=== PATIENT | female | born 1980 | race American Indian/Alaskan Native ===

== ENCOUNTER 2016-11-18 14:26 | Emergency (ER) | payer MEDICAID ==
[2016-11-18 14:27] VITALS: BMI 29.7
--- NOTE | 2016-11-18 15:42 | ED PDOC ---
Arrival/HPI - General Time Seen by Provider: 11/18/16 15:28 Historian: Patient - History of Present Illness Narrative History of Present Illness (Text): 11/18/16 15:40 This 36 yo female with pmh UTI, presents to this ED c/o urinary frequency, urgency x 2 weeks. Denies dysuria, vaginal discharge, sob, fever, rash, back pain, STD exposure, or vaginal bleeding. Time/Duration: Other (2 weeks) Context: Home Past Medical History - Provider Review Nursing Documentation Reviewed: Yes - Endocrine/Metabolic Hx Diabetes Mellitus Type 2: (borderline diabetes) - Musculoskeletal/Rheumatological Other/Comment: bone problems - Psychiatric Hx Substance Use: No - Suicidal Assessment Feels Threatened In Home Enviroment: No Family/Social History - Physician Review Nursing Documentation Reviewed: Yes Family/Social History: No Known Family HX Smoking Status: Never Smoked Hx Alcohol Use: No Hx Substance Use: No Hx Substance Use Treatment: No Allergies/Home Meds Allergies/Adverse Reactions: Allergies clindamycin Allergy (Verified 11/18/16 15:37) VOMITING dental antibiotic Adverse Reaction (Uncoded 05/15/15 13:25) PAIN constipation Review of Systems - Review of Systems Constitutional: Normal. absent: Fatigue, Weight Change, Fevers, Night Sweats Eyes: Normal ENT: Normal Respiratory: Normal. absent: SOB, Cough, Sputum, Wheezing Cardiovascular: Normal. absent: Chest Pain, Palpitations Gastrointestinal: Normal. absent: Abdominal Pain, Nausea, Vomiting Genitourinary Female: Frequency, Other ((+) urgency). absent: Dysuria, Hematuria, Urine Output Changes, Vaginal Bleeding, Vaginal Discharge Musculoskeletal: Normal Skin: Normal Neurological: Normal Endocrine: Normal Hemo/Lymphatic: Normal Psychiatric: Normal Physical Exam Vital Signs Temp Pulse Resp BP Pulse Ox 11/18/16 17:00 67 18 124/79 99 11/18/16 15:43 98.5 F 66 16 126/85 99 Temperature: Afebrile Blood Pressure: Normal Pulse: Regular Respiratory Rate: Normal Appearance: Positive for: Well-Appearing, Non-Toxic, Comfortable Pain Distress: None Mental Status: Positive for: Alert and Oriented X 3 - Systems Exam Head: Present: Atraumatic, Normocephalic Pupils: Present: PERRL Extroacular Muscles: Present: EOMI Conjunctiva: Present: Normal Mouth: Present: Moist Mucous Membranes Neck: Present: Normal Range of Motion Respiratory/Chest: Present: Clear to Auscultation, Good Air Exchange. No: Respiratory Distress, Accessory Muscle Use Cardiovascular: Present: Regular Rate and Rhythm, Normal S1, S2. No: Murmurs Abdomen: Present: Normal Bowel Sounds. No: Tenderness, Distention, Peritoneal Signs Genitourinary/Pelvic Exam: Present: Other (deferred) Back: Present: Normal Inspection Upper Extremity: Present: Normal Inspection. No: Cyanosis, Edema Lower Extremity: Present: Normal Inspection. No: Edema Neurological: Present: GCS=15, CN II-XII Intact, Speech Normal Skin: Present: Warm, Dry, Normal Color. No: Rashes Psychiatric: Present: Alert, Oriented x 3, Normal Insight, Normal Concentration Medical Decision Making ED Course and Treatment: 11/18/16 16:59 Re-evaluation. Patient feels better. Discussed results and plan with patient who expresses understanding. All questions answered and there is agreement with the plan to discharge home with instructions. Patient stable for discharge. Return if symptoms persist or worsen. Re-evaluation Time: 16:59 Reassessment Condition: Re-examined, Improved - Lab Interpretations Microbiology Results: Microbiology Results 11/18/16 16:30 Urine Urine Culture - Final No Growth (<1,000 CFU/ML) Lab Results: Lab Results 11/18/16 16:30: Urine Color Yellow, Urine Appearance Clear, Urine pH 5.5, Ur Specific [place] 1.020, Urine Protein Negative, Urine Glucose (UA) Negative, Urine Ketones Negative, Urine Blood Trace-intact H, Urine Nitrate Negative, Urine Bilirubin Negative, Urine Urobilinogen 0.2, Ur Leukocyte Esterase Trace H , Urine RBC 5 - 10, Urine WBC 2 - 5, Ur Epithelial Cells 6 - 8, Urine HCG, Qual Negative I have reviewed the lab results: Yes Interpretation: Abnormal lab values (possible UTI) - Medication Orders Current Medication Orders: Discontinued Medications Cephalexin Monohydrate (Keflex) 500 mg PO STAT STA PRN Reason: Protocol Stop: 11/18/16 16:59 Last Admin: 11/18/16 17:06 Dose: 500 mg Phenazopyridine HCl (Pyridium) 200 mg PO STAT STA Stop: 11/18/16 16:59 Last Admin: 11/18/16 17:07 Dose: 200 mg Disposition/Present on Arrival - Present on Arrival Any Indicators Present on Arrival: No History of DVT/PE: No History of Uncontrolled Diabetes: No Urinary Catheter: No History Surgical Site Infection Following: None - Disposition Have Diagnosis and Disposition been Completed?: Yes Diagnosis: Acute cystitis Disposition: HOME/ ROUTINE Disposition Time: 16:59 Patient Plan: Discharge Condition: GOOD Discharge Instructions (ExitCare): Urinary Tract Infection in Women (ED) Additional Instructions: Call private doctor for follow up visit in 1-2 days. Take medication as instructed. Return to emergency if symptoms worsen Prescriptions: Cephalexin [cephalexin] 500 mg PO BID #14 cap Phenazopyridine [Phenazopyridine HCl] 200 mg PO TID #6 tab Referrals: [facility] [Outside] - [facility] [[facility]] - Follow up with primary Forms: WORK NOTE
[2016-11-18 15:44] VITALS: TEMP 98.5; O2SAT 99
[2016-11-18 16:45] LABS: PH,URINE 5.5 (4.7-8.0); URINE APPEARANCE CLEAR (CLEAR); URINE BILIRUBIN NEGATIVE (NEGATIVE); URINE BLOOD TRACE-INTACT (NEGATIVE); URINE COLOR YELLOW (YELLOW); URINE GLUCOSE (UA) NEGATIVE (NEGATIVE); URINE KETONE NEGATIVE (NEGATIVE); URINE LEUKOCYTE ESTERASE TRACE Leu/uL (NEGATIVE); URINE PROTEIN NEGATIVE mg/dL (<30 mg/dL); URINE UROBILINOGEN 0.2 E.U./dL (<1 E.U./dL)
[2016-11-18 17:10] VITALS: BP 124/79; PULSE 67; RESP 18
== END 2016-11-18 17:30 | disposition home or self-care (01) ==
LOC: ED 14:26
DX: N30.00 Acute cystitis without hematuria (principal)

== ENCOUNTER 2016-11-26 20:43 | Emergency (ER) | payer MEDICAID ==
[2016-11-26 20:51] VITALS: BMI 33.9
[2016-11-26 20:53] VITALS: BP 124/86; PULSE 86; TEMP 98.2
--- NOTE | 2016-11-26 21:58 | ED PDOC ---
Arrival/HPI - General Chief Complaint: ENT Problem Time Seen by Provider: 11/26/16 21:16 Historian: Patient - History of Present Illness Narrative History of Present Illness (Text): 11/26/16 21:57 36-year-old female presents today with a one-week history of sore throat and nasal congestion. Denies cough. Patient with a history of seasonal allergies. Patient complaining of postnasal drip. She denies fevers at home. Denies sick contacts. No vomiting or diarrhea. No chest pain or shortness of breath. Patient complaining of irritation and pruritus in the throat. Time/Duration: 1 week Symptom Onset: Gradual Symptom Course: Unchanged Quality: Other (scratchy/irritated) Severity Level: 2 Past Medical History - Provider Review Nursing Documentation Reviewed: Yes - Travel History Have you recently traveled outside [place] w/in the past 3 mons?: No - Tetanus Immunization Tetanus Immunization: Unknown - Cardiac Hx Hypertension: Yes (BORDERLINE) - Pulmonary Hx Respiratory Disorders: No - Neurological Hx Neurological Disorder: No - HEENT Hx HEENT Disorder: No - Renal Hx Renal Disorder: No - Endocrine/Metabolic Hx Diabetes Mellitus Type 2: (borderline diabetes) - Hematological/Oncological Hx Blood Disorders: No - Integumentary Hx Dermatological Disorder: No - Musculoskeletal/Rheumatological Other/Comment: bone problems - Gastrointestinal Hx Gastrointestinal Disorders: No - Genitourinary/Gynecological Hx Urinary Tract Infection: Yes - Psychiatric Hx Psychophysiologic Disorder: No Hx Substance Use: No - Suicidal Assessment Feels Threatened In Home Enviroment: No Family/Social History - Physician Review Nursing Documentation Reviewed: Yes Family/Social History: Unknown Family HX Smoking Status: Never Smoked Hx Alcohol Use: No Hx Substance Use: No Hx Substance Use Treatment: No Allergies/Home Meds Allergies/Adverse Reactions: Allergies clindamycin Allergy (Verified 11/26/16 20:51) VOMITING dental antibiotic Adverse Reaction (Uncoded 11/26/16 20:51) PAIN constipation Review of Systems - Review of Systems Constitutional: absent: Fatigue, Fevers ENT: Sore Throat, Sinus Congestion Respiratory: absent: SOB, Cough Cardiovascular: absent: Chest Pain, Palpitations Gastrointestinal: absent: Abdominal Pain, Diarrhea, Vomiting Musculoskeletal: absent: Arthralgias Skin: absent: Rash Neurological: absent: Headache Physical Exam Vital Signs Reviewed: Yes Vital Signs Temp Pulse Resp BP Pulse Ox 11/26/16 20:52 98.2 F 86 17 124/86 100 Temperature: Afebrile Blood Pressure: Normal Pulse: Regular Respiratory Rate: Normal Appearance: Positive for: Well-Appearing, Non-Toxic, Comfortable Pain Distress: None Mental Status: Positive for: Alert and Oriented X 3 - Systems Exam Head: Present: Atraumatic Extroacular Muscles: Present: EOMI Conjunctiva: Present: Normal Ears: Present: Normal, NORMAL TM Mouth: Present: Moist Mucous Membranes, Normal Tounge, Normal Teeth. No: Drooling, Trismus Pharnyx: Present: ERYTHEMA. No: Normal, EXUDATE, TONSILS ENLARGED, Peritonsilar Swelling, Uvular Deviation, Muffled/Hoarse Voice Nose (External): Present: Atraumatic Nose (Internal): Present: Normal Inspection Neck: Present: Normal Range of Motion, Trachea Midline. No: Lymphadenopathy Respiratory/Chest: Present: Clear to Auscultation, Good Air Exchange. No: Respiratory Distress, Accessory Muscle Use Cardiovascular: Present: Regular Rate and Rhythm, Normal S1, S2. No: Murmurs Neurological: Present: GCS=15 Skin: Present: Warm, Dry, Normal Color. No: Rashes Psychiatric: Present: Alert, Oriented x 3 Medical Decision Making ED Course and Treatment: 11/26/16 21:59 Patient is nontoxic well appearing in no distress. Vital signs are stable Tolerating p.o. fluids and solids pt states she is allergic to clindamcyin; pt states she was given clindamycin by the dentist and developed reaction; pt states she is NOT allergic to PCN. I advised follow up with primary care physician and ENT within the next 2 days, advised to increase fluids take medications as prescribed and return if symptoms worsen persist or if new symptoms develop Patient verbalizes understanding of discharge instructions and need for immediate followup. all aspects of this case were discussed the attending of record. IMPRESSION; pharyngitis, nasal congestion Claritin daily flonase; 2 sprays each nostril once daily. Increase fluids Amoxicillin;3 times daily x10 days Follow up primary care physician within the next 2 days Follow up with the ENT specialist [place] gargles, throat lozenges Return if symptoms worsen persist or if the symptoms develop Disposition/Present on Arrival - Present on Arrival Any Indicators Present on Arrival: No History of DVT/PE: No History of Uncontrolled Diabetes: No Urinary Catheter: No History of Decub. Ulcer: No History Surgical Site Infection Following: None - Disposition Have Diagnosis and Disposition been Completed?: Yes Diagnosis: Pharyngitis, Nasal congestion Disposition: HOME/ ROUTINE Disposition Time: 21:55 Patient Plan: Discharge Condition: GOOD Discharge Instructions (ExitCare): Pharyngitis (ED) Additional Instructions: Flonase 2 sprays each nostril once daily Claritin one tablet daily Increase fluids Amoxicillin 3 times daily x10 days Follow up primary care physician within the next 2 days [place] gargles, throat lozenges Return if symptoms worsen persist or if the symptoms develop Prescriptions: Amoxicillin 500 mg PO TID #30 tab Fluticasone Nasal [Flonase] 2 spr NS DAILY #1 spr Loratadine [Claritin] 10 mg PO DAILY #30 tab Referrals: José Miguel Lynn DO [Staff Provider] - Follow up with primary [facility] [Outside] - Follow up with primary Laura Anderson MD [Staff Provider] - Follow up with primary Forms: WORK NOTE
[2016-11-26 22:26] VITALS: RESP 16; O2SAT 98
== END 2016-11-26 22:26 | disposition home or self-care (01) ==
LOC: ED 20:43
DX: J02.9 Acute pharyngitis, unspecified (principal); R09.81 Nasal congestion

== ENCOUNTER 2017-01-17 12:26 | Emergency (ER) | payer MEDICAID, OTHER ==
[2017-01-17 12:29] VITALS: BMI 32.3
[2017-01-17 12:32] VITALS: BP 114/77; PULSE 80; RESP 18; TEMP 98.1; O2SAT 99
--- NOTE | 2017-01-17 12:37 | ED PDOC ---
Arrival/HPI - General Chief Complaint: Dental Pain Time Seen by Provider: 01/17/17 12:29 Historian: Patient - History of Present Illness Narrative History of Present Illness (Text): 01/17/17 12:32 36yo female present with complaint of right lower tooth pain with swelling since yesterday. States pain started while chewing yesterday. Took Aleve and Tylenol for the pain without relieve. She also report urinary frequency. states she was treated for UTI a month ago, but still having urinary frequency. She denies fever, chills, dysuria, back pain, any other complaint. Past Medical History - Provider Review Nursing Documentation Reviewed: Yes - Infectious Disease Hx of Infectious Diseases: None - Tetanus Immunization Tetanus Immunization: Unknown - Cardiac Hx Cardiac Disorders: Yes Hx Hypertension: Yes (BORDERLINE) - Pulmonary Hx Respiratory Disorders: No - Neurological Hx Neurological Disorder: No - HEENT Hx HEENT Disorder: No - Renal Hx Renal Disorder: No - Endocrine/Metabolic Hx Endocrine Disorders: Yes Hx Diabetes Mellitus Type 2: (borderline diabetes) - Hematological/Oncological Hx Blood Disorders: No - Integumentary Hx Dermatological Disorder: No - Musculoskeletal/Rheumatological Other/Comment: bone problems - Gastrointestinal Hx Gastrointestinal Disorders: No - Genitourinary/Gynecological Hx Genitourinary Disorders: Yes Hx Urinary Tract Infection: Yes - Psychiatric Hx Psychophysiologic Disorder: No Hx Substance Use: No - Anesthesia Hx Anesthesia: No - Suicidal Assessment Feels Threatened In Home Enviroment: No Family/Social History - Physician Review Nursing Documentation Reviewed: Yes Family/Social History: Unknown Family HX Smoking Status: Never Smoked Hx Alcohol Use: No Hx Substance Use: No Hx Substance Use Treatment: No Allergies/Home Meds Allergies/Adverse Reactions: Allergies clindamycin Allergy (Verified 01/17/17 12:29) VOMITING dental antibiotic Adverse Reaction (Uncoded 01/17/17 12:29) PAIN constipation Review of Systems - Physician Review All systems were reviewed & negative as marked: Yes - Review of Systems Constitutional: Normal Eyes: Normal ENT: Other (Toothache) Respiratory: Normal Cardiovascular: Normal Gastrointestinal: Normal Genitourinary Female: Frequency. absent: Dysuria, Hematuria Musculoskeletal: Normal Skin: Normal Neurological: Normal Endocrine: Normal Hemo/Lymphatic: Normal Psychiatric: Normal Physical Exam Vital Signs Reviewed: Yes Vital Signs Temp Pulse Resp BP Pulse Ox 01/17/17 12:31 98.1 F 80 18 114/77 99 Temperature: Afebrile Blood Pressure: Normal Pulse: Regular Respiratory Rate: Normal Appearance: Positive for: Well-Appearing, Non-Toxic, Comfortable Pain Distress: None Mental Status: Positive for: Alert and Oriented X 3 - Systems Exam Head: Present: Atraumatic, Normocephalic Pupils: Present: PERRL Extroacular Muscles: Present: EOMI Conjunctiva: Present: Normal Mouth: Present: Moist Mucous Membranes. No: Normal Teeth (Lateral right incisor noted with mild gingival swelling) Neck: Present: Normal Range of Motion Respiratory/Chest: Present: Clear to Auscultation, Good Air Exchange. No: Respiratory Distress, Accessory Muscle Use Cardiovascular: Present: Regular Rate and Rhythm, Normal S1, S2. No: Murmurs Abdomen: Present: Normal Bowel Sounds. No: Tenderness, Distention, Peritoneal Signs, Rebound, Guarding, McBurney's Point Tender, Rovsing's Sign Present Back: Present: Normal Inspection Upper Extremity: Present: Normal Inspection. No: Cyanosis, Edema Lower Extremity: Present: Normal Inspection. No: Edema Neurological: Present: GCS=15, CN II-XII Intact, Speech Normal Skin: Present: Warm, Dry, Normal Color. No: Rashes Psychiatric: Present: Alert, Oriented x 3, Normal Insight, Normal Concentration Medical Decision Making - Lab Interpretations Lab Results: Lab Results 01/17/17 12:50: Urine Color Yellow, Urine Appearance Clear, Urine pH 6.0, Ur Specific [place] 1.025, Urine Protein Negative, Urine Glucose (UA) Negative, Urine Ketones Negative, Urine Blood Small H, Urine Nitrate Negative, Urine Bilirubin Negative, Urine Urobilinogen 0.2, Ur Leukocyte Esterase Small H, Urine RBC 1 - 3, Urine WBC 2 - 5, Ur Epithelial Cells 3 - 4, Urine Bacteria Small - Medication Orders Current Medication Orders: Discontinued Medications Amoxicillin (Amoxil 500 Mg Cap) 500 mg PO STAT STA PRN Reason: Protocol Stop: 01/17/17 12:34 Last Admin: 01/17/17 12:50 Dose: 500 mg Tramadol HCl (Ultram) 50 mg PO STAT STA Stop: 01/17/17 12:35 Last Admin: 01/17/17 12:50 Dose: 50 mg Disposition/Present on Arrival - Present on Arrival Any Indicators Present on Arrival: No History of DVT/PE: No History of Uncontrolled Diabetes: No Urinary Catheter: No History of Decub. Ulcer: No History Surgical Site Infection Following: None - Disposition Have Diagnosis and Disposition been Completed?: Yes Diagnosis: Dental caries, Urinary frequency Disposition: HOME/ ROUTINE Disposition Time: 13:35 Patient Plan: Discharge Patient Problems: Current Active Problems Problem Status Onset Dental caries Acute Condition: STABLE Discharge Instructions (ExitCare): Dental Caries (ED) Additional Instructions: Follow up with a Dentist Return to ED for any new symptoms Prescriptions: Amoxicillin 500 mg PO TID #21 tablet Ibuprofen [Motrin Tab] 600 mg PO Q6 #15 tab traMADol [Ultram] 50 mg PO TID #6 tab Referrals: Tomy Vallejo DMD [Non-Staff] - Follow up with primary Forms: WORK NOTE
[2017-01-17 13:06] LABS: URINE APPEARANCE CLEAR (CLEAR); URINE BILIRUBIN NEGATIVE (NEGATIVE); URINE BLOOD SMALL (NEGATIVE); URINE COLOR YELLOW (YELLOW); URINE GLUCOSE (UA) NEGATIVE (NEGATIVE); URINE LEUKOCYTE ESTERASE SMALL Leu/uL (NEGATIVE); URINE NITRATE NEGATIVE (NEGATIVE); URINE PROTEIN NEGATIVE mg/dL (<30 mg/dL); URINE UROBILINOGEN 0.2 E.U./dL (<1 E.U./dL)
[2017-01-17 13:21] LABS: URINE BACTERIA SMALL (NEG)
== END 2017-01-17 13:50 | disposition home or self-care (01) ==
LOC: ED 12:26
DX: K02.9 Dental caries, unspecified (principal); R35.0 Frequency of micturition

== ENCOUNTER 2017-01-18 17:36 | Emergency (ER) | payer MEDICAID, OTHER ==
[2017-01-18 17:37] VITALS: BMI 32.3
--- NOTE | 2017-01-18 17:54 | ED PDOC ---
Arrival/HPI - General Chief Complaint: Dental Pain Time Seen by Provider: 01/18/17 17:40 Historian: Patient - History of Present Illness Narrative History of Present Illness (Text): 01/18/17 17:56 36yo female in ED for toothache/gum swelling. She was seen here yesterday for same complaint and referred to a Dentist. States she went to [facility] dental clinic today and was told that they are closed for today and was referred to ED. States she was told to go the ED. She was sure if it was [facility] ED or [facility] so she came to [facility]. She denies fever, chills, any other complaint. she is currently on abx since yesterday. Past Medical History - Provider Review Nursing Documentation Reviewed: Yes - Infectious Disease Hx of Infectious Diseases: None - Tetanus Immunization Tetanus Immunization: Unknown - Cardiac Hx Cardiac Disorders: Yes Hx Hypertension: Yes (BORDERLINE) - Pulmonary Hx Respiratory Disorders: No - Neurological Hx Neurological Disorder: No - HEENT Hx HEENT Disorder: No - Renal Hx Renal Disorder: No - Endocrine/Metabolic Hx Endocrine Disorders: Yes Hx Diabetes Mellitus Type 2: (borderline diabetes) - Hematological/Oncological Hx Blood Disorders: No - Integumentary Hx Dermatological Disorder: No - Musculoskeletal/Rheumatological Other/Comment: bone problems - Gastrointestinal Hx Gastrointestinal Disorders: No - Genitourinary/Gynecological Hx Genitourinary Disorders: Yes Hx Urinary Tract Infection: Yes - Psychiatric Hx Psychophysiologic Disorder: No Hx Substance Use: No - Anesthesia Hx Anesthesia: No - Suicidal Assessment Feels Threatened In Home Enviroment: No Family/Social History - Physician Review Nursing Documentation Reviewed: Yes Family/Social History: Unknown Family HX Smoking Status: Never Smoked Hx Alcohol Use: No Hx Substance Use: No Hx Substance Use Treatment: No Allergies/Home Meds Allergies/Adverse Reactions: Allergies clindamycin Allergy (Verified 01/18/17 17:39) VOMITING dental antibiotic Adverse Reaction (Uncoded 01/17/17 12:29) PAIN constipation Review of Systems - Physician Review All systems were reviewed & negative as marked: Yes - Review of Systems Constitutional: Normal Eyes: Normal ENT: Other (Toothache) Respiratory: Normal Cardiovascular: Normal Gastrointestinal: Normal Genitourinary Female: Normal Musculoskeletal: Normal Skin: Normal Neurological: Normal Endocrine: Normal Hemo/Lymphatic: Normal Psychiatric: Normal Physical Exam Vital Signs Reviewed: Yes Vital Signs Temp Pulse Resp BP Pulse Ox 01/18/17 17:41 98.8 F 96 H 19 128/84 99 Temperature: Afebrile Blood Pressure: Normal Pulse: Regular Respiratory Rate: Normal Appearance: Positive for: Well-Appearing, Non-Toxic, Comfortable Pain Distress: None Mental Status: Positive for: Alert and Oriented X 3 - Systems Exam Head: Present: Atraumatic, Normocephalic Pupils: Present: PERRL Extroacular Muscles: Present: EOMI Conjunctiva: Present: Normal Mouth: Present: Moist Mucous Membranes. No: Normal Teeth (Right lower incisor noted with surrounding gingival swelling with mild overlyaing swelling of the jaw noted) Neck: Present: Normal Range of Motion Respiratory/Chest: Present: Clear to Auscultation, Good Air Exchange. No: Respiratory Distress, Accessory Muscle Use Cardiovascular: Present: Regular Rate and Rhythm, Normal S1, S2. No: Murmurs Abdomen: Present: Normal Bowel Sounds. No: Tenderness, Distention, Peritoneal Signs Back: Present: Normal Inspection Upper Extremity: Present: Normal Inspection. No: Cyanosis, Edema Lower Extremity: Present: Normal Inspection. No: Edema Neurological: Present: GCS=15, CN II-XII Intact, Speech Normal Skin: Present: Warm, Dry, Normal Color. No: Rashes Psychiatric: Present: Alert, Oriented x 3, Normal Insight, Normal Concentration Disposition/Present on Arrival - Present on Arrival Any Indicators Present on Arrival: No History of DVT/PE: No History of Uncontrolled Diabetes: No Urinary Catheter: No History of Decub. Ulcer: No History Surgical Site Infection Following: None - Disposition Have Diagnosis and Disposition been Completed?: Yes Diagnosis: Dental abscess Disposition: HOME/ ROUTINE Disposition Time: 17:50 Patient Plan: Discharge Condition: STABLE Discharge Instructions (ExitCare): Dental Abscess (ED) Additional Instructions: Follow up with a Dentist at [facility] [phone] Return to ED for any new or worsening symptoms Referrals: Tomy Vallejo DMD [Non-Staff] - Follow up with primary
[2017-01-19 11:58] VITALS: BP 128/84; PULSE 96; RESP 19; TEMP 98.8; O2SAT 99
== END 2017-01-18 17:59 | disposition home or self-care (01) ==
LOC: ED 17:36
DX: K04.7 Periapical abscess without sinus (principal)

== ENCOUNTER 2017-04-21 18:56 | Emergency (ER) | payer OTHER ==
[2017-04-21 19:17] VITALS: BMI 35.5
[2017-04-21 19:21] VITALS: TEMP 97.8
[2017-04-21 19:48] LABS: URINE BILIRUBIN NEGATIVE (NEGATIVE); URINE BLOOD TRACE-INTACT (NEGATIVE); URINE GLUCOSE (UA) NEGATIVE (NEGATIVE); URINE KETONE NEGATIVE (NEGATIVE); URINE LEUKOCYTE ESTERASE TRACE Leu/uL (NEGATIVE); URINE PROTEIN NEGATIVE mg/dL (<30 mg/dL); URINE UROBILINOGEN 0.2 E.U./dL (<1 E.U./dL)
--- NOTE | 2017-04-21 19:48 | ED PDOC ---
Arrival/HPI - General Chief Complaint: Female Genitourinary Time Seen by Provider: 04/21/17 19:22 Historian: Patient - History of Present Illness Narrative History of Present Illness (Text): 04/21/17 19:45 37yr old female presents today with a 1 week history of left sided abdominal pain, back pain and urinary frequency. no cp or sob. no vomiting/diarrhea. no dizziness or weakness. pt with hx of UTI in the past with similar symptoms. no fever/chills. no medications taken at home. no other complaints. Time/Duration: 1 week Symptom Onset: Gradual Symptom Course: Unchanged Quality: Aching, Cramping Severity Level: 4 Past Medical History - Provider Review Nursing Documentation Reviewed: Yes - Travel History Have you recently traveled outside [place] w/in the past 3 mons?: No - Infectious Disease Hx of Infectious Diseases: None - Tetanus Immunization Tetanus Immunization: Unknown - Cardiac Hx Cardiac Disorders: Yes Hx Hypertension: Yes (BORDERLINE) - Pulmonary Hx Respiratory Disorders: No - Neurological Hx Neurological Disorder: No - HEENT Hx HEENT Disorder: No - Renal Hx Renal Disorder: No - Endocrine/Metabolic Hx Endocrine Disorders: Yes Hx Diabetes Mellitus Type 2: (borderline diabetes) - Hematological/Oncological Hx Blood Disorders: No - Integumentary Hx Dermatological Disorder: No - Musculoskeletal/Rheumatological Other/Comment: bone problems - Gastrointestinal Hx Gastrointestinal Disorders: No - Genitourinary/Gynecological Hx Genitourinary Disorders: Yes Hx Urinary Tract Infection: Yes - Psychiatric Hx Psychophysiologic Disorder: No Hx Substance Use: No - Anesthesia Hx Anesthesia: No - Suicidal Assessment Feels Threatened In Home Enviroment: No Family/Social History - Physician Review Nursing Documentation Reviewed: Yes Family/Social History: Unknown Family HX Smoking Status: Never Smoked Hx Alcohol Use: No Hx Substance Use: No Hx Substance Use Treatment: No Allergies/Home Meds Allergies/Adverse Reactions: Allergies clindamycin Allergy (Verified 04/21/17 19:17) VOMITING dental antibiotic Adverse Reaction (Uncoded 04/21/17 19:17) PAIN constipation Review of Systems - Review of Systems Constitutional: absent: Fatigue, Fevers Respiratory: absent: SOB, Cough Cardiovascular: absent: Chest Pain, Palpitations Gastrointestinal: Abdominal Pain. absent: Constipation, Diarrhea, Nausea, Vomiting Genitourinary Female: Frequency. absent: Dysuria, Hematuria, Vaginal Bleeding, Vaginal Discharge Musculoskeletal: Back Pain. absent: Arthralgias, Neck Pain Skin: absent: Rash, Pruritis Neurological: absent: Headache, Dizziness Psychiatric: absent: Anxiety, Depression Physical Exam Vital Signs Reviewed: Yes Vital Signs Temp Pulse Resp BP Pulse Ox 04/21/17 19:19 97.8 F 80 17 122/79 100 Temperature: Afebrile Blood Pressure: Normal Pulse: Regular Respiratory Rate: Normal Appearance: Positive for: Well-Appearing, Non-Toxic, Comfortable Pain Distress: None Mental Status: Positive for: Alert and Oriented X 3 - Systems Exam Head: Present: Atraumatic Mouth: Present: Moist Mucous Membranes Neck: Present: Normal Range of Motion Respiratory/Chest: Present: Clear to Auscultation, Good Air Exchange. No: Respiratory Distress, Accessory Muscle Use Cardiovascular: Present: Regular Rate and Rhythm, Normal S1, S2. No: Murmurs Abdomen: Present: Normal Bowel Sounds. No: Tenderness, Distention, Peritoneal Signs, Rebound, Guarding Back: Present: Normal Inspection. No: CVA Tenderness, Midline Tenderness, Paraspinal Tenderness Upper Extremity: Present: Normal ROM Lower Extremity: Present: Normal ROM Neurological: Present: GCS=15 Skin: Present: Warm, Dry, Normal Color. No: Rashes Psychiatric: Present: Alert, Oriented x 3 Medical Decision Making ED Course and Treatment: 04/21/17 19:47 pt non toxic well appearing; no distress. stable vitals. c/o 1 week hx of uti symptoms with flank and abdominal pain. abdomen is soft non tender; non distended; no cva tenderness. UA: + blood, + leukocytes pt with blood in urine + flank pain will do ct abd/pelvis without contrast; r/o stone. CT/abd/pelvis; FINDINGS: Lower thorax: There is minimal bibasilar atelectasis. ABDOMEN: Liver: There are no focal liver lesions present. Gallbladder and bile ducts: The gallbladder is contracted but otherwise normal. No calcified stones. No ductal dilation. Pancreas: The pancreas is normal. No ductal dilation. Spleen: The spleen is normal. Adrenals: The adrenal glands are normal. Kidneys and ureters: The kidneys are normal. No obstructing stones. No hydronephrosis. Stomach and bowel: Stomach is decompressed. Colonic constipation is present. There is no evidence of intestinal obstruction. No mucosal thickening. Appendix: A normal appendix is identified. PELVIS: Bladder: Bladder is decompressed. No stones. Reproductive: The uterus is normal. The ovaries are normal. ABDOMEN and PELVIS: Intraperitoneal space: There is no evidence of free intraperitoneal fluid. There is no free intraperitoneal air. Bones/joints: No acute fracture. No dislocation. Soft tissues: Unremarkable. Vasculature: The aorta is normal. No abdominal aortic aneurysm. Lymph nodes: There is no evidence of lymphadenopathy. IMPRESSION: No acute findings. 04/21/17 22:45 pt reassessment; non toxic well appearing; no distress. talking on cell phone; abdomen non tender; discussed results in depth with patient; keflex started PO pt was advised to f/u with PMD, take abx as prescribed and return immediately if symptoms worsen,persist or if new symptoms develop;high fevers, increasing pain, n/v or if any other concerning symptoms develop. impression: UTI motrin every 6 hours as needed for pain keflex; 1 capsule 4 times x 7 days increase fluids follow up with the primary care physician within the next 2 days. return immediately if symptoms worsen,persist or if new symptoms develop;high fevers, increasing pain, nausea, vomiting or if any other concerning symptoms develop - Lab Interpretations Lab Results: Lab Results 04/21/17 19:40: Urine Color Yellow, Urine Appearance Clear, Urine pH 6.0, Ur Specific [place] 1.020, Urine Protein Negative, Urine Glucose (UA) Negative, Urine Ketones Negative, Urine Blood Trace-intact H, Urine Nitrate Negative, Urine Bilirubin Negative, Urine Urobilinogen 0.2, Ur Leukocyte Esterase Trace H , Urine RBC 0 - 2, Urine WBC 2 - 5, Ur Epithelial Cells 6 - 8, Urine Bacteria Mod - RAD Interpretation Radiology Orders: 04/21/17 20:27 ABD & PELVIS W/O PO OR IV CONT [CT] Stat Disposition/Present on Arrival - Present on Arrival Any Indicators Present on Arrival: No History of DVT/PE: No History of Uncontrolled Diabetes: No Urinary Catheter: No History of Decub. Ulcer: No History Surgical Site Infection Following: None - Disposition Have Diagnosis and Disposition been Completed?: Yes Diagnosis: UTI (urinary tract infection) Disposition: HOME/ ROUTINE Disposition Time: 22:53 Patient Plan: Discharge Condition: GOOD Discharge Instructions (ExitCare): Urinary Tract Infection in Women (ED) Additional Instructions: motrin every 6 hours as needed for pain keflex; 1 capsule 4 times x 7 days increase fluids follow up with the primary care physician within the next 2 days. return immediately if symptoms worsen,persist or if new symptoms develop;high fevers, increasing pain, nausea, vomiting or if any other concerning symptoms develop Prescriptions: Cephalexin [Keflex] 500 mg PO QID #28 capsule Ibuprofen [Motrin] 600 mg PO Q6H PRN #20 tab PRN Reason: pain/fever reduction Referrals: Maggy Vera MD [Primary Care Provider] - Follow up with primary Forms: [email or web address] (Spanish), WORK NOTE
[2017-04-21 20:03] LABS: URINE APPEARANCE CLEAR (CLEAR); URINE COLOR YELLOW (YELLOW)
[2017-04-21 20:24] LABS: URINE RBC 0 - 2 /hpf (0-2)
[2017-04-21 20:25] LABS: URINE BACTERIA MOD (NEG)
--- NOTE | 2017-04-21 22:38 | CT ---
EXAM: CT Abdomen and Pelvis Without Intravenous Contrast CLINICAL HISTORY: 37 years old, female; Pain; Abdominal pain; Flank; Left; Additional info: Left flank pain TECHNIQUE: Axial computed tomography images of the abdomen and pelvis without intravenous contrast. All CT scans at this facility use one or more dose reduction techniques, viz.: automated exposure control; ma/kV adjustment per patient size (including targeted exams where dose is matched to indication; i.e. head); or iterative reconstruction technique. Coronal and sagittal reformatted images were created and reviewed. COMPARISON: No relevant prior studies available. FINDINGS: Lower thorax: There is minimal bibasilar atelectasis. ABDOMEN: Liver: There are no focal liver lesions present. Gallbladder and bile ducts: The gallbladder is contracted but otherwise normal. No calcified stones. No ductal dilation. Pancreas: The pancreas is normal. No ductal dilation. Spleen: The spleen is normal. Adrenals: The adrenal glands are normal. Kidneys and ureters: The kidneys are normal. No obstructing stones. No hydronephrosis. Stomach and bowel: Stomach is decompressed. Colonic constipation is present. There is no evidence of intestinal obstruction. No mucosal thickening. Appendix: A normal appendix is identified. PELVIS: Bladder: Bladder is decompressed. No stones. Reproductive: The uterus is normal. The ovaries are normal. ABDOMEN and PELVIS: Intraperitoneal space: There is no evidence of free intraperitoneal fluid. There is no free intraperitoneal air. Bones/joints: No acute fracture. No dislocation. Soft tissues: Unremarkable. Vasculature: The aorta is normal. No abdominal aortic aneurysm. Lymph nodes: There is no evidence of lymphadenopathy. IMPRESSION: No acute findings.
[2017-04-21 23:01] VITALS: BP 118/76; PULSE 72; RESP 18; O2SAT 98
== END 2017-04-21 23:04 | disposition home or self-care (01) ==
LOC: ED 18:56
DX: N39.0 Urinary tract infection, site not specified (principal)

== ENCOUNTER 2017-07-26 17:07 | Emergency (ER) | payer OTHER ==
[2017-07-26 17:07] VITALS: BMI 35.5
[2017-07-26 17:18] VITALS: RESP 18; TEMP 98.1
[2017-07-26] MEDS ORDERED: Amoxicillin-Clav 875-125 mg Tab PO STA (19:01)
--- NOTE | 2017-07-26 19:07 | ED PDOC ---
Arrival/HPI - General Chief Complaint: ENT Problem Time Seen by Provider: 07/26/17 17:12 Historian: Patient - History of Present Illness Narrative History of Present Illness (Text): 07/26/17 37 yo female w/o significant PMHx come in for evaluation of Right earache, intermittent headache gradually developed for past few days. Pt describes, " noted some pop in my Right ear". Otherwise, pt denies high fever, denies severe headache, dizziness, visual changes, drooling, dysphagia, dyspnea, cough, neck pain, abd. pain, N/V/D, back pain, UTi sx. Ambulate to Ed for evaluation, not in any apparent distress. Past Medical History - Provider Review Nursing Documentation Reviewed: Yes - Travel History Have you recently traveled outside [place] w/in the past 3 mons?: No - Past History Past History: No Previous - Infectious Disease Hx of Infectious Diseases: None - Tetanus Immunization Tetanus Immunization: Unknown - Cardiac Hx Cardiac Disorders: Yes Hx Hypertension: Yes (BORDERLINE) - Pulmonary Hx Respiratory Disorders: No - Neurological Hx Neurological Disorder: No - HEENT Hx HEENT Disorder: No - Renal Hx Renal Disorder: No - Endocrine/Metabolic Hx Endocrine Disorders: Yes Hx Diabetes Mellitus Type 2: (borderline diabetes) - Hematological/Oncological Hx Blood Disorders: No - Integumentary Hx Dermatological Disorder: No - Musculoskeletal/Rheumatological Other/Comment: bone problems - Gastrointestinal Hx Gastrointestinal Disorders: No - Genitourinary/Gynecological Hx Genitourinary Disorders: Yes Hx Urinary Tract Infection: Yes - Psychiatric Hx Psychophysiologic Disorder: No Hx Substance Use: No - Anesthesia Hx Anesthesia: No - Suicidal Assessment Feels Threatened In Home Enviroment: No Family/Social History - Physician Review Nursing Documentation Reviewed: Yes Family/Social History: No Known Family HX Smoking Status: Never Smoked Hx Alcohol Use: No Hx Substance Use: No Hx Substance Use Treatment: No Allergies/Home Meds Allergies/Adverse Reactions: Allergies clindamycin Allergy (Verified 04/21/17 19:17) VOMITING dental antibiotic Adverse Reaction (Uncoded 04/21/17 19:17) PAIN constipation Review of Systems - Physician Review All systems were reviewed & negative as marked: Yes - Review of Systems Constitutional: Normal Eyes: Normal ENT: Sinus Congestion, Other (earache). absent: Rhinorrhea Respiratory: Normal. absent: SOB, Cough, Sputum Cardiovascular: Normal Gastrointestinal: Normal. absent: Abdominal Pain Genitourinary Female: Normal. absent: Dysuria Musculoskeletal: Normal. absent: Neck Pain Skin: Normal. absent: Rash Neurological: Normal, Headache. absent: Dizziness Endocrine: Normal Hemo/Lymphatic: Normal Psychiatric: Normal Physical Exam Vital Signs Reviewed: Yes Vital Signs Temp Pulse Resp BP Pulse Ox 07/26/17 17:17 98.1 F 84 18 115/77 100 Temperature: Afebrile Blood Pressure: Normal Pulse: Regular Respiratory Rate: Normal Appearance: Positive for: Well-Appearing, Non-Toxic, Comfortable Pain Distress: None Mental Status: Positive for: Alert and Oriented X 3 - Systems Exam Head: Present: Normocephalic Conjunctiva: Present: Normal Ears: Present: NORMAL TM, Normal Canal, Fluid (Right) Mouth: Present: Moist Mucous Membranes, Normal Lips. No: Drooling Pharnyx: Present: ERYTHEMA (mild B/L). No: EXUDATE Neck: Present: Trachea Midline. No: Meningeal Signs Respiratory/Chest: Present: Clear to Auscultation, Good Air Exchange. No: Respiratory Distress, Accessory Muscle Use Cardiovascular: Present: Regular Rate and Rhythm, Normal S1, S2. No: Murmurs Abdomen: Present: Normal Bowel Sounds. No: Tenderness, Distention, Peritoneal Signs, Rebound, Guarding Back: No: CVA Tenderness Upper Extremity: Present: Normal ROM. No: Deformity Lower Extremity: Present: Normal ROM. No: Edema, Deformity Neurological: Present: GCS=15, Speech Normal Skin: Present: Warm, Dry, Normal Color. No: Rashes Psychiatric: Present: Alert, Oriented x 3, Normal Insight, Normal Concentration Medical Decision Making ED Course and Treatment: 07/26/17 On re-eval, pt is afebrile, hemodynamicaly stable. Non-toxic. Tolerate po well in ED. PulsEOx 100% RA ENT: exam c/w sinusitis. uvula midline, no edema. neck: Supple, (-) meningeal sign. Lungs: CTA B/L, BS equal B/L Abd: benign. neurologicaly intact. Pt advised. re.f to f/u with PMD in 2-3 days for re-eval. return to ED if any worsening or new changes. - Medication Orders Current Medication Orders: Discontinued Medications Ibuprofen (Motrin Tab) 600 mg PO STAT STA Stop: 07/26/17 18:21 Last Admin: 07/26/17 18:36 Dose: 600 mg MAR Pain/Vitals Document 07/26/17 18:36 GMD (Rec: 07/26/17 18:36 GMD [id number]) Pain Reassessment Is This A Pain ReAssessment? No Sleep Is patient sleeping during reassessment? No Presence of Pain Presence of Pain Yes Disposition/Present on Arrival - Present on Arrival Any Indicators Present on Arrival: No History of DVT/PE: No History of Uncontrolled Diabetes: No Urinary Catheter: No History of Decub. Ulcer: No History Surgical Site Infection Following: None - Disposition Have Diagnosis and Disposition been Completed?: Yes Diagnosis: Sinusitis Disposition: HOME/ ROUTINE Disposition Time: 19:09 Patient Plan: Discharge Patient Problems: Current Active Problems Problem Status Onset Sinusitis Acute Condition: STABLE Discharge Instructions (ExitCare): Sinusitis (ED) Additional Instructions: ENCOURAGE FLUIDS TAKE MEDICATION PRESCRIBED FOLLOW UP WITH PMD, ENT IN 2-3 DAYS FOR RE-EVALUATION. RETURN TO ED IF ANY WORSENING OR NEW CHANGES. Prescriptions: Amoxicillin/Clavulanate [Augmentin 875 MG-125 MG] 1 tab PO BID #14 tab Prednisone [Deltasone] 20 mg PO DAILY #3 tablet Referrals: José Miguel Lynn DO [Staff Provider] - Follow up with primary
[2017-07-26 19:15] LABS: URINE BILIRUBIN NEGATIVE (NEGATIVE); URINE BLOOD NEGATIVE (NEGATIVE); URINE GLUCOSE (UA) NEGATIVE (NEGATIVE); URINE LEUKOCYTE ESTERASE NEGATIVE Leu/uL (NEGATIVE); URINE NITRATE NEGATIVE (NEGATIVE); URINE PROTEIN NEGATIVE mg/dL (<30 mg/dL); URINE UROBILINOGEN 0.2 E.U./dL (<1 E.U./dL)
[2017-07-26 19:21] VITALS: BP 124/76; PULSE 76; O2SAT 98
[2017-07-26 19:24] LABS: URINE APPEARANCE CLEAR (CLEAR); URINE COLOR YELLOW (YELLOW)
== END 2017-07-26 19:22 | disposition home or self-care (01) ==
LOC: ED 17:07
DX: J32.9 Chronic sinusitis, unspecified (principal); E11.9 Type 2 diabetes mellitus without complications; I10 Essential (primary) hypertension

== ENCOUNTER 2017-10-04 20:13 | Emergency (ER) | payer OTHER ==
[2017-10-04 20:15] VITALS: BMI 35.5
--- NOTE | 2017-10-04 20:53 | ED PDOC ---
Arrival/HPI - General Chief Complaint: Bite Time Seen by Provider: 10/04/17 20:22 - History of Present Illness Narrative History of Present Illness (Text): 37 y/o F p/w L arm lesion since yesterday morning. States woke up with what seems to be a bug bite which has been itchy. Denies fever, chills, erythema, discharge. She also notes some L sided flank pain which is mild and associated with urinary frequency. Denies vomiting, dyspnea, dysuria. Past Medical History - Past History Past History: No Previous - Infectious Disease Hx of Infectious Diseases: None - Tetanus Immunization Tetanus Immunization: Unknown - Cardiac Hx Cardiac Disorders: Yes Hx Hypertension: Yes (BORDERLINE) - Pulmonary Hx Respiratory Disorders: No - Neurological Hx Neurological Disorder: No - HEENT Hx HEENT Disorder: No - Renal Hx Renal Disorder: No - Endocrine/Metabolic Hx Endocrine Disorders: Yes Hx Diabetes Mellitus Type 2: (borderline diabetes) - Hematological/Oncological Hx Blood Disorders: No - Integumentary Hx Dermatological Disorder: No - Musculoskeletal/Rheumatological Other/Comment: bone problems - Gastrointestinal Hx Gastrointestinal Disorders: No - Genitourinary/Gynecological Hx Genitourinary Disorders: Yes Hx Urinary Tract Infection: Yes - Psychiatric Hx Psychophysiologic Disorder: No Hx Substance Use: No - Anesthesia Hx Anesthesia: No - Suicidal Assessment Feels Threatened In Home Enviroment: No Family/Social History Family/Social History: No Known Family HX Smoking Status: Never Smoked Hx Alcohol Use: No Hx Substance Use: No Hx Substance Use Treatment: No Allergies/Home Meds Allergies/Adverse Reactions: Allergies clindamycin Allergy (Verified 04/21/17 19:17) VOMITING dental antibiotic Adverse Reaction (Uncoded 04/21/17 19:17) PAIN constipation Review of Systems - Physician Review All systems were reviewed & negative as marked: Yes - Review of Systems Constitutional: absent: Fevers Respiratory: absent: SOB Physical Exam - Physical Exam Narrative Physical Exam (Text): Gen: NAD Head: NC ENT: MMM CV: Regular rate. Radial pulse 2+ Resp: No accessory muscle use Abd: Soft, NT Back: No CVA tenderness Skin: L forearm with punctate lesion without erythema, discharge, tenderness, or edema. Neuro: Alert Vital Signs Temp Pulse Resp BP Pulse Ox 10/04/17 20:45 97.9 F 88 16 155/98 H 99 Medical Decision Making ED Course and Treatment: Topical benadryl or hydrocortisone. Check UA for urinary symptoms but no abdominal tenderness. - Lab Interpretations Lab Results: Lab Results 10/04/17 21:15: Urine Color Yellow, Urine Appearance Clear, Urine pH 6.5, Ur Specific [place] 1.025, Urine Protein Negative, Urine Glucose (UA) Negative, Urine Ketones Trace H, Urine Blood Trace-intact H, Urine Nitrate Negative, Urine Bilirubin Negative, Urine Urobilinogen 1.0 H, Ur Leukocyte Esterase Negative, Urine RBC 1 - 3, Urine WBC 2 - 5, Ur Epithelial Cells 6 - 8, Urine Bacteria Few, Urine HCG, Qual Negative Disposition/Present on Arrival - Present on Arrival Any Indicators Present on Arrival: No History of DVT/PE: No History of Uncontrolled Diabetes: No Urinary Catheter: No History of Decub. Ulcer: No History Surgical Site Infection Following: None - Disposition Have Diagnosis and Disposition been Completed?: Yes Diagnosis: Bug bite Disposition: HOME/ ROUTINE Disposition Time: 23:01 Patient Plan: Discharge Condition: STABLE Discharge Instructions (ExitCare): Insect Bites and Stings Prescriptions: Hydrocortisone 1% Cream [Cortizone 1% Cream] 1 appl TOP BID #1 tube Referrals: Maggy Vera MD [Primary Care Provider] - Follow up with primary Forms: [employer] (Amharic)
[2017-10-04 21:03] VITALS: RESP 16; TEMP 97.9; O2SAT 99
[2017-10-04 21:47] LABS: PH,URINE 6.5 (4.7-8.0); URINE BILIRUBIN NEGATIVE (NEGATIVE); URINE BLOOD TRACE-INTACT (NEGATIVE); URINE GLUCOSE (UA) NEGATIVE (NEGATIVE); URINE LEUKOCYTE ESTERASE NEGATIVE Leu/uL (NEGATIVE); URINE PROTEIN NEGATIVE mg/dL (<30 mg/dL)
[2017-10-04 21:53] LABS: URINE APPEARANCE CLEAR (CLEAR); URINE COLOR YELLOW (YELLOW)
[2017-10-04 22:00] LABS: URINE BACTERIA FEW (NEG)
[2017-10-04 22:15] LABS: HCG,QUALITATIVE URINE NEGATIVE (NEGATIVE)
[2017-10-04 23:19] VITALS: BP 148/88; PULSE 80
== END 2017-10-04 23:19 | disposition home or self-care (01) ==
LOC: ED 20:13
DX: S50.862A Insect bite (nonvenomous) of left forearm, initial encounter (principal); W57.XXXA Bitten or stung by nonvenomous insect and other nonvenomous arthropods, initial encounter

== ENCOUNTER 2018-04-21 20:07 | Emergency (ER) | payer BC ==
[2018-04-21 20:09] VITALS: BMI 35.5
[2018-04-21 20:24] VITALS: BP 124/80; PULSE 76; RESP 18; TEMP 98.5; O2SAT 96
--- NOTE | 2018-04-22 03:38 | ED PDOC ---
Arrival/HPI - General Historian: Patient - History of Present Illness Narrative History of Present Illness (Text): 04/22/18 03:33 38 y/o female with no significant PMH presents to ED c/o itchy eyes, dry cough, sore throat, and sinus pressure x 1 week. Pt has been taking claritin intermittently without relief. Denies fever, chills, sputum, wheezing, eye drainage, eye pain, ear pain, vision changes, SOB, chest pain, abdominal pain, N/V. 04/22/18 03:38 <Pau Siu - Last Filed: 04/22/18 03:33> <Melvin Garcia - Last Filed: 04/24/18 06:27> - General Chief Complaint: ENT Problem Time Seen by Provider: 04/21/18 20:57 Past Medical History - Provider Review Nursing Documentation Reviewed: Yes - Past History Past History: No Previous - Infectious Disease Hx of Infectious Diseases: None - Tetanus Immunization Tetanus Immunization: Unknown - Cardiac Hx Cardiac Disorders: No - Pulmonary Hx Respiratory Disorders: No - Neurological Hx Neurological Disorder: No - HEENT Hx HEENT Disorder: No - Renal Hx Renal Disorder: No - Endocrine/Metabolic Hx Endocrine Disorders: Yes Other/Comment: BORDERLINE DM - Hematological/Oncological Hx Blood Disorders: No - Integumentary Hx Dermatological Disorder: No - Musculoskeletal/Rheumatological Hx Musculoskeletal Disorders: No - Gastrointestinal Hx Gastrointestinal Disorders: No - Genitourinary/Gynecological Hx Genitourinary Disorders: Yes Hx Urinary Tract Infection: Yes - Psychiatric Hx Psychophysiologic Disorder: No Hx Substance Use: No - Anesthesia Hx Anesthesia: No - Suicidal Assessment Feels Threatened In Home Enviroment: No <Pau Siu - Last Filed: 04/22/18 03:33> Family/Social History - Physician Review Nursing Documentation Reviewed: Yes Family/Social History: No Known Family HX Smoking Status: Never Smoked Hx Alcohol Use: No Hx Substance Use: No Hx Substance Use Treatment: No <Pau Siu - Last Filed: 04/22/18 03:33> Allergies/Home Meds <Pau Siu - Last Filed: 04/22/18 03:33> <Melvin Garcia - Last Filed: 04/24/18 06:27> Allergies/Adverse Reactions: Allergies clindamycin Allergy (Verified 04/21/18 20:22) VOMITING dental antibiotic Adverse Reaction (Uncoded 04/21/18 20:22) PAIN constipation Review of Systems - Physician Review All systems were reviewed & negative as marked: Yes - Review of Systems Constitutional: Normal. absent: Fevers Eyes: Other (redness). absent: Vision Changes, Photophobia, Eye Pain ENT: Sore Throat, Sinus Congestion. absent: Hearing Changes, Tinnitus, Voice Changes, Rhinorrhea, Epistaxis Respiratory: Normal, Cough. absent: SOB, Sputum, Wheezing Cardiovascular: Normal. absent: Chest Pain, Palpitations, Syncope Gastrointestinal: Normal. absent: Abdominal Pain, Stool Changes, Nausea, Vomiting Genitourinary Female: Normal Musculoskeletal: Normal Skin: Normal. absent: Rash Neurological: Normal. absent: Headache, Dizziness Endocrine: Normal Hemo/Lymphatic: Normal <Pau Siu - Last Filed: 04/22/18 03:33> Physical Exam Vital Signs Reviewed: Yes Vital Signs Temp Pulse Resp BP Pulse Ox 04/21/18 20:23 98.5 F 76 18 124/80 96 Temperature: Afebrile Blood Pressure: Normal Pulse: Regular Respiratory Rate: Normal Appearance: Positive for: Well-Appearing, Non-Toxic, Comfortable Pain Distress: None Mental Status: Positive for: Alert and Oriented X 3 - Systems Exam Head: Present: Atraumatic, Normocephalic Pupils: Present: PERRL, Other (eyes with mild redness bilaterally; no drainage.) Extroacular Muscles: Present: EOMI Conjunctiva: Present: Normal Ears: Present: Normal Canal, Other (fluid behind TM bilaterally). No: Erythema, TM Bulging, TM Perf Mouth: Present: Moist Mucous Membranes, Normal Lips, Normal Tounge, Normal Teeth Pharnyx: Present: Normal. No: ERYTHEMA, EXUDATE, TONSILS ENLARGED, Peritonsilar Swelling, Uvular Deviation, Muffled/Hoarse Voice, Soft Palate/Uvular Edema Nose (External): Present: Atraumatic Nose (Internal): Present: No Active Bleeding, Moist, Boggy, Clear Mucous Neck: Present: Normal Range of Motion. No: Meningeal Signs, MIDLINE TENDERNESS, Paraspinal Tenderness Respiratory/Chest: Present: Clear to Auscultation, Good Air Exchange. No: Respiratory Distress, Accessory Muscle Use, Wheezes Cardiovascular: Present: Regular Rate and Rhythm, Normal S1, S2. No: Murmurs Abdomen: No: Tenderness, Distention, Peritoneal Signs Upper Extremity: Present: Normal Inspection, Normal ROM, NORMAL PULSES. No: Cyanosis, Edema Lower Extremity: Present: Normal Inspection, Normal ROM Neurological: Present: GCS=15, CN II-XII Intact, Speech Normal Skin: Present: Warm, Dry, Normal Color. No: Rashes Lymphatic: No: Cervical Adenopathy Psychiatric: Present: Alert, Oriented x 3, Normal Insight, Normal Concentration <Pau Siu - Last Filed: 04/22/18 03:33> Vital Signs Temp Pulse Resp BP Pulse Ox 04/21/18 20:23 98.5 F 76 18 124/80 96 <Melvin Garcia - Last Filed: 04/24/18 06:27> Medical Decision Making ED Course and Treatment: 04/22/18 03:40 Impression: Allergic rhinitis Plan: --take claritin daily --flonase --followup with PMD --return to ED if symptoms worsen <Pau Siu - Last Filed: 04/22/18 03:33> ED Course and Treatment: 04/24/18 06:27 The documented history was done by the physician multicultural services librarian. The documented physical exam was done by the physician multicultural services librarian. The documented procedures were done by the physician multicultural services librarian, I was available for consultation during the PA/GRINDER SET UP OPERATOR evaluation. The chart was reviewed by me, and I agree with the management and plan. <Melvin Garcia - Last Filed: 04/24/18 06:27> Disposition/Present on Arrival - Present on Arrival Any Indicators Present on Arrival: No History of DVT/PE: No History of Uncontrolled Diabetes: No Urinary Catheter: No History of Decub. Ulcer: No History Surgical Site Infection Following: None - Disposition Have Diagnosis and Disposition been Completed?: Yes Disposition Time: 21:00 Patient Plan: Discharge <Pau Siu - Last Filed: 04/22/18 03:33> <Melvin Garcia - Last Filed: 04/24/18 06:27> - Disposition Diagnosis: Allergic rhinitis Disposition: HOME/ ROUTINE Condition: STABLE Discharge Instructions (ExitCare): Sinusitis in Adults, Seasonal Allergies (DC) Additional Instructions: Use flonase every morning 2 sprays per nostril Take Claritin daily Use visine for eye redness as needed Discontinue contact use if eyes are irritated Followup with primary within 2 days Return to ED if symptoms persist or worsen Prescriptions: Fluticasone Propionate [Flonase] 2 spr NS DAILY #1 bottle Referrals: Nel Giang MD [Medical Doctor] - Follow up with primary Forms: [employer] ([place]an), WORK NOTE
== END 2018-04-21 21:08 | disposition home or self-care (01) ==
LOC: ED 20:07
DX: J30.9 Allergic rhinitis, unspecified (principal)

== ENCOUNTER 2018-07-03 18:52 | Emergency (ER) | payer BC, OTHER ==
[2018-07-03 18:53] VITALS: BMI 35.5
[2018-07-03 19:05] VITALS: RESP 18; O2SAT 99
[2018-07-03] MEDS ORDERED: Sodium Chloride 0.9% 500 ML IV STA (19:44)
--- NOTE | 2018-07-03 19:49 | ED PDOC ---
Arrival/HPI - General Chief Complaint: Chest Pain Historian: Patient - History of Present Illness Narrative History of Present Illness (Text): 07/03/18 19:46 38 y/o female, no significant pmh, allergic to clindamycin, c/o epigastric on and off with chest pain x 1 week with no fall or trauma. Pt. stated that she has epigastric burning, associated acid reflux, associated with the chest pain, on and off x 1 week, on medication taken at home, no dizziness, no change in vision, no night sweat, no numbness or tingling, no other medical or psychological complaints. Past Medical History - Provider Review Nursing Documentation Reviewed: Yes - Past History Past History: No Previous - Infectious Disease Hx of Infectious Diseases: None - Tetanus Immunization Tetanus Immunization: Unknown - Reproductive Menopause: No - Cardiac Hx Cardiac Disorders: No - Pulmonary Hx Respiratory Disorders: No - Neurological Hx Neurological Disorder: No - HEENT Hx HEENT Disorder: No - Renal Hx Renal Disorder: No - Endocrine/Metabolic Hx Endocrine Disorders: Yes Other/Comment: BORDERLINE DM - Hematological/Oncological Hx Blood Disorders: No - Integumentary Hx Dermatological Disorder: No - Musculoskeletal/Rheumatological Hx Musculoskeletal Disorders: No - Gastrointestinal Hx Gastrointestinal Disorders: No - Genitourinary/Gynecological Hx Genitourinary Disorders: Yes Hx Urinary Tract Infection: Yes - Psychiatric Hx Psychophysiologic Disorder: No Hx Substance Use: No - Anesthesia Hx Anesthesia: No - Suicidal Assessment Feels Threatened In Home Enviroment: No Family/Social History - Physician Review Nursing Documentation Reviewed: Yes Family/Social History: Unknown Family HX Smoking Status: Never Smoked Hx Alcohol Use: No Hx Substance Use: No Hx Substance Use Treatment: No Allergies/Home Meds Allergies/Adverse Reactions: Allergies clindamycin Allergy (Verified 04/21/18 20:22) VOMITING dental antibiotic Adverse Reaction (Uncoded 07/03/18 19:03) PAIN constipation Review of Systems - Review of Systems Constitutional: absent: Fatigue, Fevers Eyes: absent: Vision Changes ENT: absent: Hearing Changes Respiratory: absent: SOB, Cough Cardiovascular: Chest Pain Gastrointestinal: Abdominal Pain. absent: Diarrhea, Nausea, Vomiting Skin: absent: Rash, Pruritis Neurological: absent: Headache, Dizziness Psychiatric: absent: Anxiety, Depression, Suicidal Ideation Physical Exam Vital Signs Reviewed: Yes Vital Signs Temp Pulse Resp BP Pulse Ox 07/03/18 19:04 98.2 F 99 H 18 116/77 99 Temperature: Afebrile Blood Pressure: Normal Pulse: Regular Respiratory Rate: Normal Appearance: Positive for: Well-Appearing, Non-Toxic, Comfortable Pain Distress: Mild Mental Status: Positive for: Alert and Oriented X 3 - Systems Exam Head: Present: Atraumatic, Normocephalic Pupils: Present: PERRL Extroacular Muscles: Present: EOMI Conjunctiva: Present: Normal Mouth: Present: Moist Mucous Membranes Neck: Present: Normal Range of Motion Respiratory/Chest: Present: Clear to Auscultation, Good Air Exchange. No: Respiratory Distress, Accessory Muscle Use Cardiovascular: Present: Regular Rate and Rhythm, Normal S1, S2. No: Murmurs Abdomen: Present: Tenderness (mild epigastric tenderness), Normal Bowel Sounds, Other (negative mclaughlin signs). No: Distention, Peritoneal Signs, Rebound, Guarding, McBurney's Point Tender, Rovsing's Sign Present Back: Present: Normal Inspection. No: CVA Tenderness Upper Extremity: Present: Normal Inspection. No: Cyanosis, Edema Lower Extremity: Present: Normal Inspection. No: Edema Neurological: Present: GCS=15, CN II-XII Intact, Speech Normal Skin: Present: Warm, Dry, Normal Color. No: Rashes Psychiatric: Present: Alert, Oriented x 3, Normal Insight, Normal Concentration Medical Decision Making ED Course and Treatment: 07/03/18 19:50 -labs -ekg -cxr -observe and reassess 07/03/18 21:15 -EKG: NSR @ 89 BPM, no ST elevation or depression, no T wave inversion. -Chest xray: no active disease -Labs: show no acute findings -Lipase: no acute findings -Mag: no acute findings -Trop: negative after 24 hours -Dimer: negative -All labs/radiology result discussed, pt. feels much better, no pain now, will discharge home. -Discharge home with pepcid, tylenol, stay hydrated, bed rest, follow up with your own pmd and GI/assistant director of residence life within 2 days, avoid gym and exercise until clear by the assistant director of residence life, return to the ER for any new or worsening signs or symptoms. - RAD Interpretation Radiology Orders: 07/03/18 19:45 CHEST PORTABLE [RAD] Stat - Medication Orders Current Medication Orders: Famotidine (Pepcid) 20 mg IVP STAT STA Stop: 07/03/18 19:45 Sodium Chloride (Sodium Chloride 0.9%) 500 mls @ 999 mls/hr IV .Q31M STA Stop: 07/03/18 20:14 Ketorolac Tromethamine (Toradol) 30 mg IVP STAT STA Stop: 07/03/18 19:45 - PA / [employer]EP FARM MANAGER / Resident Statement MD/DO has reviewed & agrees with the documentation as recorded. Disposition/Present on Arrival - Present on Arrival Any Indicators Present on Arrival: No History of DVT/PE: No History of Uncontrolled Diabetes: No Urinary Catheter: No History of Decub. Ulcer: No History Surgical Site Infection Following: None - Disposition Have Diagnosis and Disposition been Completed?: Yes Diagnosis: Atypical chest pain Disposition: HOME/ ROUTINE Disposition Time: 21:16 Patient Plan: Discharge Condition: IMPROVED Discharge Instructions (ExitCare): Chest Pain (ED) Additional Instructions: -Discharge home with pepcid, tylenol, stay hydrated, bed rest, follow up with your own pmd and GI/assistant director of residence life within 2 days, avoid gym and exercise until clear by the assistant director of residence life, return to the ER for any new or worsening signs or symptoms. Prescriptions: Acetaminophen [Tylenol] 2 cap PO QID PRN #30 capsule PRN Reason: Other Famotidine [Pepcid] 20 mg PO BID #20 tab Referrals: Nick Mina, [Non-Staff] - Follow up with primary Yuliya Felix MD [Staff Provider] - Follow up with primary Edgar Turner MD [Staff Provider] - Follow up with primary [facility] [place] [Outside] - Follow up with primary Forms: [employer] (H[place]ian), WORK NOTE
[2018-07-03 20:29] LABS: BASO # 0.02 K/mm3 (0.0-2.0); BASO % 0.4 % (0.0-3.0); EOS # 0.1 (0.0-0.7); EOS % 1.1 % (1.5-5.0); GRAN # 2.85 (1.4-6.5); GRAN % 52.4 % (50.0-68.0); HEMOGLOBIN 13.7 g/dL (12.0-16.0); LYMPH # 2.2 (1.2-3.4); LYMPH % 40.6 % (22.0-35.0); MEAN CELL VOLUME 92.1 fl (80.0-105.0); MEAN CORPUSCULAR HEMOGLOBIN 29.3 pg (25.0-35.0); MEAN CORPUSCULAR HGB CONC 31.8 g/dl (31.0-37.0); MEAN PLATELET VOLUME 11.1 fl (7.0-11.0); MONO # 0.3 (0.1-0.6); MONO % 5.5 % (1.0-6.0); RBC 4.68 10^6/uL (3.5-6.1); RED CELL DISTRIBUTION WIDTH 13.8 % (11.5-14.5); WHITE BLOOD COUNT 5.4 10^3/uL (4.5-11.0)
[2018-07-03 20:35] LABS: ALB/GLOB RATIO 1.2 (1.1-1.8); ALBUMIN 3.8 g/dL (3.0-4.8); ALT/SGPT 23 U/L (7-56); AST/SGOT 27 U/L (14-36); BLOOD UREA NITROGEN 6 mg/dL (7-21); CALCIUM 8.7 mg/dL (8.4-10.5); GFR NON-AFRICAN AMERICAN > 60; LIPASE 56 U/L (23-300)
[2018-07-03 20:45] LABS: TROPONIN I < 0.01 ng/mL
[2018-07-03 21:16] VITALS: BP 116/70; PULSE 61; TEMP 98.3
--- NOTE | 2018-07-04 09:23 | RAD ---
Date of service: 07/03/2018 HISTORY: medical clearance COMPARISON: No prior. FINDINGS: LUNGS: No active pulmonary disease. PLEURA: No significant pleural effusion identified, no pneumothorax apparent. CARDIOVASCULAR: No aortic atherosclerotic calcification present. Normal cardiac size. No pulmonary vascular congestion. OSSEOUS STRUCTURES: No significant abnormalities. VISUALIZED UPPER ABDOMEN: Normal. OTHER FINDINGS: None. IMPRESSION: No active disease.
--- NOTE | 2018-07-04 12:35 | CARD ---
APPROVED REPORT Date of service: 07/03/2018 EKG Measurement Heart [id number] <Conclusion> Normal sinus rhythm Normal ECG
== END 2018-07-03 21:24 | disposition home or self-care (01) ==
LOC: ED 18:52
DX: R07.89 Other chest pain (principal)
CPT/HCPCS: 71045; 80053; 83690; 83735; 84484; 85025; 85378; 93005; 96374; 96375; 99284; J1885; J7040